=== PATIENT | male | born 1990 | race Caucasian/White ===

== ENCOUNTER 2020-11-14 18:54 | Emergency (ER) | payer SELFPAY ==
[~2020-11-14] VITALS: Ht 182.9 cm; Wt 83.9 kg
[2020-11-14 18:57] VITALS: BP 127/97
== END 2020-11-14 22:51 | disposition left against medical advice (07) ==
LOC: ER 18:54
DX: M79.605 Pain in left leg (principal); Z53.21 Procedure and treatment not carried out due to patient leaving prior to being seen by health care provider

== ENCOUNTER 2024-06-10 15:03 | Emergency (ER) | payer SELFPAY ==
[~2024-06-10] VITALS: Ht 182.9 cm; Wt 80.0 kg
[2024-06-10 15:15] VITALS: PULSE 105; RESP 14; O2SAT 94
[2024-06-10] MEDS: LORazepam 2MG/ML-1ML VIAL IV ONE (15:17)
[2024-06-10] MEDS: HALOPERIDOL LACTATE 5 MG/ML INJ VIAL IM ONE (15:17)
[2024-06-10] MEDS: diphenhdrAMINE HCL 50 MG/1 ML VL IV ONE (15:17)
[2024-06-10] MEDS: diphenhdrAMINE HCL 50 MG/1 ML VL ONE (15:53)
[2024-06-10] MEDS: LORazepam 2MG/ML-1ML VIAL ONE (15:53)
[2024-06-10] MEDS: HALOPERIDOL LACTATE 5 MG/ML INJ VIAL ONE (15:54)
--- NOTE | 2024-06-10 16:25 | ED.PDOC ---
History of Present Illness HPI Comments This is a 34-year-old male who comes in with chief complaint of psychotic behavior. [place] and 911 was called. The patient was transferred to our facility. Upon arrival, the patient is speaking nonsense and is somewhat combative. The patient had to be restrained being transported into the emergency department Chief Complaint: Mental Health Time Seen by MD: 15:08 Primary Care Provider: DENIES Reviewed Notes: Nurses Notes, Supervisor Prep Notes, Medications, Allergies (No allergies to medications) Allergies: Coded Allergies: NO KNOWN ALLERGIES (Unverified , 11/14/20) Information Source: Emergency Med Personnel Mode of Arrival: EMS Severity: Moderate Timing: Hours Duration: Since onset Prehospital treatment: Restraints Associated signs and symptoms Combative behavior Past Medical History PAST MEDICAL HISTORY: Denies Surgical History: Denies all surgeries Family History Family History: Unknown Social History Smoker: Unknown Alcohol: Unknown Drugs: Unknown Lives In: Homeless Unable to Obtain due to: Other (The patient was somewhat combative and somewhat altered) Physical Exam General Appearance: Mild Distress, Other (The patient was combative and disheveled) HEENT: Normal ENT Inspection, Pharynx Normal, TMs Normal Neck: Full Range of Motion, Non-Tender, Normal, Normal Inspection Respiratory: Chest Non-Tender, Lungs Clear, No Accessory Muscle Use, No Respiratory Distress, Normal Breath Sounds Cardiovascular: No Edema, No JVD, No Murmur, No Gallop, Normal Peripheral Pulses, Regular Rate/Rhythm Breast Exam: Deferred Gastrointestinal: No Organomegaly, Non Tender, No Pulsatile Mass, Normal Bowel Sounds, Soft Genitalia: Deferred Pelvic: Deferred Rectal: Deferred Extremities: No calf tenderness, Normal capillary refill, Normal inspection, Normal range of motion, Non-tender, No pedal edema Musculoskeletal : Apperance: Normal Neurologic: Alert, manager local II-XII nml as Tested, No Motor Deficits, No Sensory Deficits Cerebellar Function: Normal Reflexes: Normal Skin: Dry, Normal Color, Warm Lymphatic: No Adenopathy Was a procedure done? Was a procedure done?: No Differential Dx Considerations may include: Substance abuse, combative, dehydration, generalized weakness X-Ray, Labs, Meds, VS Vital Signs Date Time Temp Pulse Resp B/P (MAP) Pulse Ox O2 Delivery O2 Flow Rate FiO2 06/10/24 16:14 86 19 100/48 (65) 92 11/17/24 15:45 84 19 102/50 (67) 92 06/10/24 15:30 105 14 127/79 (95) 94 06/10/24 15:23 98.3 95 16 126/83 (97) 98 06/10/24 15:15 105 14 94 Room Air* 0 21 Lab Test 06/10/24 15:34 Range/Units Plasma/Serum Blood Alcohol Pending Current Medications Medications (Trade) Dose Ordered Sig/Clint Route Start Time Stop Time Status Last Admin Lorazepam (Ativan Inj) 2 mg ONCE ONCE IV 06/10/24 15:30 06/10/24 15:31 DC 06/10/24 15:17 Diphenhydramine HCl (Benadryl Injection) 25 mg ONCE ONCE IV 06/10/24 15:30 06/10/24 15:31 DC 06/10/24 15:17 Haloperidol Lactate (Haldol) 10 mg ONCE ONCE IM 06/10/24 15:30 06/10/24 15:31 DC 06/10/24 15:17 The patient was given Ativan 2 mg IV push The patient was given Benadryl 25 mg IV push The patient was also given Haldol 10 mg IM At this time, the patient was placed in four-point restraints until the medication we will start to work. The patient will be signed out to Dr. Price We will wait for the patient to be able to answer questions appropriately and then determine if the patient needs a telemedicine psychiatry consult or psychiatric social worker Images Reviewed?: Images reviewed and evaluated by me Time of 1ST Reevaluation: 16:23 Reevaluation 1ST: Unchanged Patient Education/Counseling: Diagnosis, Treatment, Prognosis Family Education/Counseling: No Family Present Departure 1 Departure Time of Disposition: 16:24 Impression: Primary Impression: Psychosis Disposition: 30 STILL A PATIENT Condition: Fair Critical Care Note Critical Care Time?: No Stability Stability form required: No Heart Score Heart Score: Heart Score Response (Comments) Value History N/A 0 EKG N/A 0 Age N/A 0 Risk Factors N/A 0 Troponin N/A 0 Total 0 RASHARD SMITH MD Jun 10, 2024 16:25
[2024-06-10 19:15] VITALS: O2SAT 98
[2024-06-11 07:59] LABS: Amphetamine Screen, Urine Pos (NEGATIVE); Barbiturate Scree,Urine Neg (NEGATIVE); Benzodiazephine Screen, Urine Neg (NEGATIVE); Cannabinoid Screen, Urine Neg (NEGATIVE); Cocaine Screen, Urine Neg (NEGATIVE); Opiate Scree,Urine Neg (NEGATIVE); Phencyclidine Screen, Urine Neg (NEGATIVE)
[2024-06-11 08:03] VITALS: BP 134/82; PULSE 95
[2024-06-11 08:42] VITALS: RESP 12; O2SAT 98
--- NOTE | 2024-06-11 12:05 | DVHINCON2 ---
Date of Service if different f: Jun 11, 2024 Time of Service: 11:45 Consultation ([facility]) Consulting Physician: KARINE JOSE MD Labs Laboratory Tests Test 06/10/24 15:34 06/11/24 06:40 Plasma/Serum Blood Alcohol 314.0 mg/dL (<10) Urine Opiates Screen Neg (NEGATIVE) Urine Fentanyl Screen Neg (NEGATIVE) Urine Barbiturates Screen Neg (NEGATIVE) Urine Phencyclidine Screen Neg (NEGATIVE) Urine Amphetamines Screen Pos (NEGATIVE) Urine Benzodiazepines Screen Neg (NEGATIVE) Urine Cocaine Screen Neg (NEGATIVE) Urine Cannabinoids Screen Neg (NEGATIVE) Appearance: Stated age, Disheveled Psychomotor activity: WNL Behavioral: Cooperative Eye contact: Appropriate Speech: WNL Affect: Appropriate, Mood Congruent Mood: Euthymic Thought processes: Linear/Goal-directed Thought content: WNL Suicidal ideations: Absent Homicidal ideations: Absent Orientation: Person, Place, Time, Situation Memory intact: Recent Intellect: Average Abstractability: WNL Concentration: Adequate Attention: Adequate Judgement: WNL Insight: Good Vitals Vital Signs Date Time Temp Pulse Resp B/P (MAP) Pulse Ox O2 Delivery O2 Flow Rate FiO2 06/11/24 08:42 12 98 Room Air* 0 21 06/11/24 08:03 95 134/82 (99) 06/10/24 15:23 98.3 Treatment plan discussed: With staff Medication adjusted: No Labs ordered: No Psychotherapy provided: Yes Type: Voluntary History of Present Illness Reason for Consult : psychiatric evaluation PER ED PHYSICIAN:This is a 34-year-old male who comes in with chief complaint of psychotic behavior. The patient was found in the [facility] in [place] and 911 was called. The patient was transferred to our facility. Upon arrival, the patient is speaking nonsense and is somewhat combative. The patient had to be restrained being transported into the emergency department. PSYCHIATRIST HPI: The patient was seen and evaluated at [facility] ED via telepsychiatry platform. 34 yr old male admitted to ED last night in intoxicated state with BAL of 0.315 and Amphetamine positive. He reported, "I'm doing better." He doesn't recall what he was doing yesterday. He stated he did manage to get some alcohol and was drinking last night until he blacked out. He stated he feels good now and feels like going home. He denied having suicidal and homicidal ideation and auditory and visual hallucinations. Past Psychiatric History : No hospitalizations. "a few" suicide attempts, last was a few years ago. Diagnosed with ADHD, ODD, psychosis. Past Medical History: none Current Medications: None Substance use: Drinks alcohol a few days a week. Occasional MJ use. Denied other substance use. Social History : Lives in [place] with girlfriend in a house. On SSI. Diagnosis: ALCOHOL USE DISORDER Formulation: This 34 yr old male appears to suffer from alcohol use disorder and was highly intoxicated last night. He is now free of intoxication and does not meet criteria for psychiatric hospitalization. He was advised to refrain from alcohol and meth use. Plan: 1. The patient is psychologically cleared for discharge. 2. Legal-voluntary. 3. Medications: No psychotropic medications indicated at this time. 4. Follow up with outpatient mental health for medication management and therapy. 5. Please contact psychiatry if further follow up or reevaluation is desired. 6. Case discussed with ED RNSolange. Assessment/Diagnosis/Plan Reviewed: Labs, Medications, Previous Orders KARINE JOSE MD Jun 11, 2024 11:45
== END 2024-06-11 14:30 | disposition home or self-care (01) ==
LOC: EDBD 15:03 → ER 15:03
DX: F29 Unspecified psychosis not due to a substance or known physiological condition (principal); Z79.899 Other long term (current) drug therapy
CPT/HCPCS: 36415; 80307; 80320; 96372; 96374; 96375; 99285; J1200; J1630; J2060